=== PATIENT | female | born 1985 | race African-American/Black ===

== ENCOUNTER → 2017-01-21 | Outpatient (CLI) | payer OTHER ==
[~2017-01-21] MED LIST: ALBUTEROL17 G1; BACTRIM 400-801 TA1 PO; CIPRO PO; COMBIVENT INH14.7 GM INH; DIABETIC TUSSIN1 ML PO; DOXYCYCLINE150 MG PO; IBUPROFEN800 MG PO; IPRATR-ALBUTEROL3 ML IH; LORATADINE1 GM PO; MEDROL DOSEPAK4 MG DOB; MEDROL4 MG/DOSE- PO; PREDNISONE PO; PREDNISONE1 MG PO; TUSSIONEX PENN473 ML PO; ZITHROMAX PO
--- NOTE | ~2017-01-21 | HM ---
Unit #: [id number] #: [id number] Patient: GARRISON ROUSE [id number] [address] [address] [id number] MR#: [id number] NAME: GARRISON ROUSE : 1985 SEX: F STUDY DATE/TIME: UNIT: [facility] ROOM: STUDY DESCRIPTION: Holter Monitor Attending Physician: Kinsey Long A.P.R.N. Referring Physician: Kinsey Long A.P.R.N. Primary Care Physician: Kinsey Long A.P.R.N. CARDIOLOGY REPORT EXAM Holter Monitor DATE APPLIED 01/21/2017 DATE SCANNED 01/23/2017 ORDERED BY Dora READ BY Dr. Tenzin Aguillon REASON FOR TEST Palpitations. COMMENTS 1. Baseline rhythm is normal sinus. Minimum recorded heart rate is 58 beats/minute and maximal recorded heart rate is 172 beats/minute, the latter at 7:17 p.m. This rapid heart rate represents sinus tachycardia which is normal or physiological for this patient's age. 2. Very rare isolated PACs and very rare isolated PVCs are noted. 3. No runs of atrial tachycardia recorded. 4. There were no premature atrial couplets. Compared to recorded six runs of atrial tachycardia but none of them are documented. IMPRESSION 1. 24 hour ambulatory monitoring is essentially within normal limites with physiological range of sinus rhythm from 60 to 172 beats/minute. The patient did not describe any activity at the time of rapid heartbeat and did not describe any symptoms. 2. Very rare isolated PACs and very rare isolated PACs are recorded. 3. There is no slowing of the heart rate, AV yahaira block, sinus arrest or sinus pause. Dictated by... Tenzin Aguillon M.D. Unit #: [id number] #: [id number] Patient: GARRISON ROUSE MIKA/pedro TD: 01/24/2017 05:41 JOB #: [id number] CARDIOLOGY REPORT Page 1 of 1 X Tenzin Aguillon MD HOLTER MONITOR REPORT
--- NOTE | ~2017-01-21 | EKG ---
PATIENT: GARRISON ROUSE UNIT #: [id number] Ventricular Rate: 71 BPM Atrial Rate: 71 BPM P-R Interval: 140 ms QRS Duration: 84 ms Q-T Interval: 376 ms QTC Calculation(Bezet): 408 ms P [place]: 58 degrees Calculated R [place]: 28 degrees Calculated T [place]: 22 degrees Diagnosis Line: Sinus rhythm with marked sinus arrhythmia Diagnosis Line: Otherwise normal ECG Diagnosis Line: When compared with ECG of 29-MAY-2015 19:41, Diagnosis Line: No significant change was found Diagnosis Line: Confirmed by ROSS LARA MD ([id number]) on 01/21/2017 Diagnosis Line: 10:32:04 PM INTERPRETING MD: JANE ROSE
== END | disposition home or self-care (01) ==
LOC: CECH 14:09
DX: R00.2 Palpitations (principal); R00.0 Tachycardia, unspecified
CPT/HCPCS: 93005; 93225; 93226; 93306

== ENCOUNTER 2017-04-03 21:36 | Emergency (ER) | payer OTHER ==
--- NOTE | ~2017-04-03 | CT52 ---
[facility] A Service of [facility] RADIOLOGY TEXT RESULTS PATIENT: GARRISON ROUSE LOCATION: [facility] : [birth year] UNIT #: [id number] AGE: [address]: Ajith Castaneda SEX: F ORDER DR: [id number] [facility] [address] [facility]. [place], [place] [address] [id number] MR#: [id number] Acc #: [id number] NAME: GARRISON ROUSE : 1985 SEX: F STUDY DATE/TIME: 04/03/2017 23:35 UNIT: [facility] ROOM: STUDY DESCRIPTION: CT Cervical Spine Wo Cont Attending Physician: Ajith Castaneda Ordering Physician: Ajith Castaneda Primary Care Physician: Kinsey Long A.P.R.N. MEDICAL IMAGING REPORT This report is preliminary unless electronic signature is present EXAM Cervical spine, CT, 04/03. INDICATIONS Neck pain and right arm numbness for 3 weeks. TECHNIQUE Axial images were obtained through the cervical spine without contrast. Multiplanar reformats were obtained. No comparison. This CT exam was performed with one or more of the following radiation dose reduction techniques: automatic exposure control, adjustment of mA and/or kV according to patient size, and iterative reconstruction. FINDINGS No fracture or malalignment is identified. No disc bulging herniation is seen. There is no central canal or neural foraminal stenosis. IMPRESSION Normal cervical spine CT. Dictated by... Navneet Daniel Jr., M.D. THIS IS AN ELECTRONICALLY VERIFIED REPORT Navneet Daniel Jr., M.D. at 04/04/2017 11:25 AM JOSÉ/leroy TD: 04/04/2017 07:16 JOB #: [id number] MEDICAL IMAGING REPORT Page 1 of 1 COPY
== END 2017-04-04 01:09 | disposition home or self-care (01) ==
LOC: CED 21:36
DX: M54.12 Radiculopathy, cervical region (principal); M79.621 Pain in right upper arm; F41.9 Anxiety disorder, unspecified; J45.909 Unspecified asthma, uncomplicated
CPT/HCPCS: 72125; 84703; 99284